=== PATIENT | female | born 1975 | race African-American/Black ===

== ENCOUNTER 2021-09-12 19:33 | Emergency (ER) | payer OTHER, SELFPAY ==
[~2021-09-12 19:33] MED LIST: Iopamidol 300 61% 100 ML VIAL FS ONE
[2021-09-12] MEDS ORDERED: Morphine 4 MG/ML VIAL ONE (20:15)
[2021-09-12] MEDS ORDERED: Ondansetron PF 4 MG/2 ML Vial ONE (20:15)
[2021-09-12 20:23] LABS: BHCG - Serum Negative (NEGATIVE); Hemoglobin 9.1 g/dL (12.0-15.5); MDiff Complete? YES; Mean Corpuscular Hemoglobin 22.9 pg (27.0-33.0); Mean Corpuscular Volume 74.1 fl (81.6-98.3); Mean Platelet Volume 12.2 fl (7.4-10.4); Platelet Count 290 10x3/uL (150-450); Pregs Control Background? CLEAR/WHITE (CLR/WHITE); Pregs Control Bar Appear? YES (CONTROL BAR); RBC Distribution Width 15.4 % (11.5-14.5); Red Blood Cell (RBC) Count 3.97 10x6/uL (3.90-5.03); White Blood Cell (WBC) Count 6.7 10x3/uL (3.5-10.5)
[2021-09-12 20:31] LABS: ALT (SGPT) 20 U/L (8-55); AST (SGOT) 22 U/L (5-34); Albumin 3.9 g/dL (3.5-5.0); Alkaline Phosphatase 86 U/L (40-110); Anion Gap 13 mmol/L (10-20); BUN (Urea Nitrogen) 9 mg/dL (7.0-18.7); Bilirubin, Total 0.3 mg/dL (0.2-1.2); CK (CPK) 79 U/L (29-168); Calc. Creatinine Clearance 0 mL/min (70-130); Calcium 9.6 mg/dL (7.8-10.44); Carbon Dioxide 25 mmol/L (22-29); Chloride 106 mmol/L (98-107); Estimated GFR 97; Globulin 2.7 g/dL (2.4-3.5); Glucose 85 mg/dL (70-105); Lipase 37 U/L (8-78); Potassium 3.6 mmol/L (3.5-5.1); Protein, Total 6.6 g/dL (6.0-8.3); Sodium 140 mmol/L (136-145)
[2021-09-12 20:57] LABS: Band 1 % (5-11); Lymphocytes 17 % (21-51); Monocytes 5 % (0-10); Neutrophil 77 % (42-75)
[2021-09-12 20:58] LABS: Hypochromia SLIGHT = 6-15 cells (100X) (0-5/hpf)
[2021-09-12 20:59] LABS: Platelet Morphology Comment Appears Adequate
[2021-09-12 21:30] LABS: Bilirubin Neg (Negative); Blood, Urine 250 (Negative); Clarity Clear (Clear); Glucose, Urine (Dipstick) Normal (Negative); Ketone, Urine Negative (Negative); Leukocyte 25 (Negative); Nitrite Negative (Negative); Protein, Urine (Dipstick) 30 mg/dl (Neg-Trace); Urobilinogen Normal mg/dL (Less than 2)
[2021-09-12 21:39] LABS: Bacteria/HPF 3+ HPF (None Seen)
== END 2021-09-12 22:04 | disposition home or self-care (01) ==
LOC: CSHERS 19:33
DX: N39.0 Urinary tract infection, site not specified (principal); R10.32 Left lower quadrant pain
CPT/HCPCS: 74177; 80053; 81003; 81015; 82550; 83690; 84703; 85025; 87086; 96361; 96374; 96375; J2270; J2405; Q9967

== ENCOUNTER 2021-09-17 18:30 | Emergency (ER) | payer OTHER, SELFPAY ==
[2021-09-17] MEDS ORDERED: Cyclobenzaprine 10 MG TAB ONE (20:14)
== END 2021-09-17 20:14 | disposition home or self-care (01) ==
LOC: CSHERS 18:30
DX: M25.512 Pain in left shoulder (principal)
CPT/HCPCS: 99283

== ENCOUNTER 2021-10-06 14:03 | Emergency (ER) | payer SELFPAY ==
[2021-10-06 15:36] LABS: Bilirubin Neg (Negative); Blood, Urine 10 (Negative); Clarity Slightly Cloudy (Clear); Glucose, Urine (Dipstick) Normal (Negative); Ketone, Urine Negative (Negative); Leukocyte 25 (Negative); Nitrite Negative (Negative); Protein, Urine (Dipstick) 15 mg/dl (Neg-Trace); Urobilinogen Normal mg/dL (Less than 2)
[2021-10-06 15:53] LABS: Bacteria/HPF Rare-Few HPF (None Seen); Mucous/LPF 2+ LPF (<2+); Squamous Epithelial 0-3 HPF (0-3)
== END 2021-10-06 17:02 | disposition home or self-care (01) ==
LOC: CSHERS 14:03
DX: N39.0 Urinary tract infection, site not specified (principal); D50.9 Iron deficiency anemia, unspecified
CPT/HCPCS: 51701; 81003; 81015; 87086

== ENCOUNTER 2021-10-07 18:22 | Emergency (ER) | payer OTHER, SELFPAY ==
[~2021-10-07 18:22] MED LIST changes: -Iopamidol 300 61% 100 ML VIAL FS ONE; +Iopamidol 370 76% 100 ML VIAL ONE
[2021-10-07 19:56] LABS: Hemoglobin 9.8 g/dL (12.0-15.5); Mean Corpuscular HGB CONC 31.5 g/dL (32.0-36.0); Mean Corpuscular Hemoglobin 22.8 pg (27.0-33.0); Mean Corpuscular Volume 72.3 fl (81.6-98.3); Platelet Count 215 10x3/uL (150-450); RBC Distribution Width 17.4 % (11.5-14.5)
[2021-10-07] MEDS ORDERED: Ketorolac Tromethamine 30 MG/ML VIAL ONE (20:00)
[2021-10-07 20:04] LABS: BHCG - Serum Negative (NEGATIVE); Pregs Control Background? CLEAR/WHITE (CLR/WHITE); Pregs Control Bar Appear? YES (CONTROL BAR)
[2021-10-07 20:09] LABS: ALT (SGPT) 19 U/L (8-55); AST (SGOT) 17 U/L (5-34); Albumin 3.9 g/dL (3.5-5.0); Alkaline Phosphatase 84 U/L (40-110); Anion Gap 11 mmol/L (10-20); BUN (Urea Nitrogen) 6 mg/dL (7.0-18.7); Bilirubin, Total 0.4 mg/dL (0.2-1.2); Calc. Creatinine Clearance 0 mL/min (70-130); Calcium 9.3 mg/dL (7.8-10.44); Carbon Dioxide 23 mmol/L (22-29); Chloride 107 mmol/L (98-107); Estimated GFR 100; Globulin 2.6 g/dL (2.4-3.5); Glucose 112 mg/dL (70-105); Lipase 26 U/L (8-78); Potassium 3.2 mmol/L (3.5-5.1); Protein, Total 6.5 g/dL (6.0-8.3); Sodium 138 mmol/L (136-145)
[2021-10-07 20:33] LABS: MDiff Complete? YES
[2021-10-07 20:38] LABS: Lymphocytes 2 % (21-51); Monocytes 3 % (0-10); Neutrophil 95 % (42-75)
[2021-10-07 20:39] LABS: Anisocytosis SLIGHT = 6-15 cells (100X) (0-5/hpf); Hypochromia SLIGHT = 6-15 cells (100X) (0-5/hpf); Platelet Morphology Comment Appears Adequate
== END 2021-10-07 22:55 | disposition home or self-care (01) ==
LOC: CSHERS 18:22
DX: N39.0 Urinary tract infection, site not specified (principal); D50.9 Iron deficiency anemia, unspecified
CPT/HCPCS: 36415; 74177; 80053; 83690; 84703; 85025; 93005; 96374; J1885; Q9967

== ENCOUNTER 2021-12-05 07:20 | Day surgery (SDC) | payer OTHER ==
[2021-12-01 11:07] VITALS: BMI 21.6
[2021-12-05] MEDS ORDERED: Gabapentin 300 MG CAP ONE (07:46)
[2021-12-05] MEDS ORDERED: Famotidine/PF 20 mg/2ml Vial ONE (07:47)
[2021-12-05] MEDS ORDERED: CeleCOXIB 100 MG CAP ONE (07:47)
[2021-12-05] MEDS ORDERED: Bupivacaine PF 0.5% 30 ML VIAL ONE (08:46)
[2021-12-05] MEDS ORDERED: EPINEPHrine 1 MG/ML AMP ONE (08:46)
[2021-12-05] MEDS ORDERED: PROPOFOL 20 ML ONE (09:38)
[2021-12-05] MEDS ORDERED: Dexamethasone 4 mg/ml Vial ONE (09:38)
[2021-12-05] MEDS ORDERED: Ondansetron PF 4 MG/2 ML Vial ONE (09:38)
[2021-12-05] MEDS ORDERED: Fentanyl 100 MCG/2 ML VIAL ONE ×2 (09:38→11:32)
[2021-12-05] MEDS ORDERED: Rocuronium Bromide 10 MG/ML (10ML VIAL) ONE (09:39)
[2021-12-05] MEDS ORDERED: CEFAZOLIN 2 GM VIAL ONE (10:04)
[2021-12-05] MEDS ORDERED: Glycopyrrolate 0.2 MG/ML 5 ML SYRINGE ONE (12:09)
[2021-12-05] MEDS ORDERED: Simethicone Chewable 80 MG TAB PO PRN (12:25)
[2021-12-05] MEDS ORDERED: traMADol HCl 50 MG TAB PO PRN (12:25)
[2021-12-05] MEDS ORDERED: Promethazine HCl 25 MG/ML VIAL IM PRN (12:25)
[2021-12-05] MEDS ORDERED: diphenhydrAMINE 25 MG CAP PO PRN (12:25)
[2021-12-05] MEDS ORDERED: HYDROcodone/Acetaminophen 5/325 mg Tablet PO PRN ×2 (12:25)
[2021-12-05] MEDS ORDERED: Bisacodyl 10 MG SUPP PR PRN (12:25)
[2021-12-05] MEDS ORDERED: Fentanyl 100 MCG/2 ML VIAL SLOW IVP PRN (12:25)
[2021-12-05] MEDS ORDERED: Ondansetron PF 4 MG/2 ML Vial IVP PRN (12:25)
[2021-12-05] MEDS: Sodium Chloride 0.9% 1,000 ML IV SCH (15:43)
[2021-12-05] MEDS ORDERED: hydrALAZINE 20 MG/ML VIAL SLOW IVP PRN (17:39)
[2021-12-05] MEDS: Ketorolac Tromethamine 30 MG/ML VIAL IVP SCH (17:55)
[2021-12-06] MEDS: Ketorolac Tromethamine 30 MG/ML VIAL IVP SCH ×3 (00:33→12:35)
[2021-12-06] MEDS: Sodium Chloride 0.9% 1,000 ML IV SCH ×3 (00:34→12:35)
[2021-12-06 04:34] LABS: Hemoglobin 8.9 g/dL (12.0-15.5); Mean Corpuscular HGB CONC 31.4 g/dL (32.0-36.0); Mean Corpuscular Hemoglobin 25.9 pg (27.0-33.0); Mean Corpuscular Volume 82.3 fl (81.6-98.3); Mean Platelet Volume 12.7 fl (7.4-10.4); Platelet Count 144 10x3/uL (150-450); RBC Distribution Width 22.3 % (11.5-14.5); Red Blood Cell (RBC) Count 3.44 10x6/uL (3.90-5.03); White Blood Cell (WBC) Count 11.2 10x3/uL (3.5-10.5)
[2021-12-06] MEDS ORDERED: Multivit, Therapeutic 1 TAB PO SCH (09:00)
[2021-12-06 11:47] VITALS: BP 152/86; TEMP 98.2
[2021-12-10] MEDS ORDERED: Ibuprofen 800 MG TAB PO SCH (22:00)
== END 2021-12-06 15:15 | disposition home or self-care (01) ==
LOC: CSHSDC 07:20 → CSHPED 14:17 → UNDOADMIN 14:17 → UNDODISIN 12-06 15:15 → CSHSDC 12-06 15:15
PROVIDERS: ATTEND Obstetrics & Gynecology
PROC: 0UT74ZZ Resection of Bilateral Fallopian Tubes, Percutaneous Endoscopic Approach (ICD-10-PCS; principal; 2021-12-05)
PROC: 0UT94ZZ Resection of Uterus, Percutaneous Endoscopic Approach (ICD-10-PCS; principal; 2021-12-05)
DX: D25.9 Leiomyoma of uterus, unspecified (principal); N83.8 Other noninflammatory disorders of ovary, fallopian tube and broad ligament; N92.0 Excessive and frequent menstruation with regular cycle; D64.9 Anemia, unspecified; G35 Multiple sclerosis; Z79.899 Other long term (current) drug therapy; Z20.822 Contact with and (suspected) exposure to COVID-19
CPT/HCPCS: 36415; 85027; 86850; 86900; 86901; 88307; J0171; J0690; J1100; J1885; J2405; J2704; J3010; J7050; S0020; S0028

== ENCOUNTER 2021-12-09 11:48 | Emergency (ER) | payer OTHER ==
[2021-12-09 12:57] LABS: Bilirubin Neg (Negative); Blood, Urine Negative (Negative); Glucose, Urine (Dipstick) Normal (Negative); Ketone, Urine Negative (Negative); Leukocyte Negative (Negative); Nitrite Negative (Negative); Protein, Urine (Dipstick) Negative (Neg-Trace)
[2021-12-09 13:00] LABS: Clarity Hazy (Clear)
== END 2021-12-09 13:30 | disposition home or self-care (01) ==
LOC: CSHERS 11:48
DX: R30.0 Dysuria (principal); D50.9 Iron deficiency anemia, unspecified
CPT/HCPCS: 51701; 81003; 87086

== ENCOUNTER 2022-02-27 12:42 | Outpatient (CLI) | payer OTHER ==
[2022-02-27] MEDS ORDERED: Magnevist 469MG/ML 20 ML VIAL ONE ×3 (15:24)
== END 2022-02-27 12:43 | disposition home or self-care (01) ==
LOC: CSHMRI 12:42
PROVIDERS: ATTEND Psychiatry & Neurology Neurology
DX: G35 Multiple sclerosis (principal); M47.812 Spondylosis without myelopathy or radiculopathy, cervical region; R90.82 White matter disease, unspecified
CPT/HCPCS: 70553; 72156; 72157; A9579